=== PATIENT | female | born 1965 | race Caucasian/White ===

== ENCOUNTER 2017-04-01 17:57 | Emergency (ER) | payer OTHER ==
[2017-04-01 18:42] VITALS: BP 122/69; PULSE 67; TEMP 98.3; BMI 33.0
[2017-04-01] MEDS ORDERED: CYCLOBENZAPRINE HCL 10 MG TABLET (FP) PO ONE (19:46)
[2017-04-01] MEDS ORDERED: KETOROLAC TROMETHAMINE 60 MG/2 ML VIAL IM ONE (19:46)
[2017-04-01] MEDS ORDERED: KETOROLAC TROMETHAMINE 60 MG/2 ML VIAL ONE (19:50)
[2017-04-01] MEDS ORDERED: CYCLOBENZAPRINE HCL 10 MG TABLET (FP) ONE (19:50)
--- NOTE | 2017-04-01 19:51 | PDOC ---
History of Present Illness - General Chief Complaint: Back Pain Stated Complaint: BACK PAIN Time Seen by Provider: 04/01/17 19:45 History Source: Patient Exam Limitations: No Limitations - History of Present Illness Initial Comments: 04/01/17 19:49 Patient here with complaints of low back pain with radiating pain through right buttock and down posterior aspect of leg. Has MRI that reveals bulging disks at L2-3 and for that was taken last fall. Has a private physician that is managing her intermittent back spasm. However patient states 2 days ago had onset and worsening pain. Denies numbness or tingling to foot, denies fevers, denies any urinary or bowel problems. Ibuprofen without issue although has an aspirin ALLERGY has never had a problem with NSAIDs. Ibuprofen generally enough to resolve her pain but this is progressively worsening. Feels may have a spasm Occurred: reports: last week Severity: reports: mild, moderate Pain Location: reports: back Loss of Consciousness: no loss of consciousness Associated Symptoms (Fall): denies symptoms Past History - Travel Traveled outside of the country in the last 30 days: No Close contact w/someone who was outside of country & ill: No - Past Medical History Allergies/Adverse Reactions: Allergies Allergy/AdvReac Type Severity Reaction Status Date / Time aspirin AdvReac Verified 04/01/17 18:39 Home Medications: Ambulatory Orders Bisacodyl [Biscolax] 10 mg RC HS PRN #5 supp.rect 11/17/15 Docusate Sodium [Colace -] 100 mg PO BID #14 capsule 11/17/15 Sulfamethoxazole/Trimethoprim [Bactrim Ds -] 1 tab PO BID #14 tablet 11/17/15 Cyclobenzaprine HCl [Flexeril 10 mg] 10 mg PO BID PRN #14 tablet 04/01/17 Other medical history: DENIES - Immunization History Immunization Up to Date: Yes - Psycho/Social/Smoking Cessation Hx Anxiety: No Suicidal Ideation: No Smoking History: Never smoked Have you smoked in the past 12 months: No Information on smoking cessation initiated: No Hx Alcohol Use: No Drug/Substance Use Hx: No Substance Use Type: None Review of Systems - Review of Systems Able to Perform ROS?: Yes Is the patient limited Kyrgyz proficient: Yes Constitutional: Yes: Symptoms Reported, See HPI. No: Malaise HEENTM: Yes: See HPI. No: Symptoms Reported Respiratory: No: Symptoms reported ABD/GI: No: Symptoms Reported : No: Symptoms Reported Musculoskeletal: Yes: Symptoms Reported, See HPI, Back Pain, Muscle Weakness Integumentary: No: Symptoms Reported All Other Systems: Reviewed and Negative *Physical Exam - Vital Signs Last Vital Signs Temp Pulse Resp BP Pulse Ox 98.3 F 67 17 122/69 99 04/01/17 18:39 04/01/17 18:39 04/01/17 18:39 04/01/17 18:39 04/01/17 18:39 - Physical Exam General Appearance: Yes: Nourished, Appropriately Dressed, Apparent Distress, Mild Distress HEENT: positive: WALKER, Normal ENT Inspection, TMs Normal, Pharynx Normal Neck: positive: Supple. negative: Tender Respiratory/Chest: positive: Lungs Clear Musculoskeletal: positive: Normal Inspection, Muscle Spasm (palpable spasm noted to the paravertebral spinous muscles, on the left side at waist and lumbar spine. Has no point tenderness to cervical or thoracic or lumbar spine process. Range of motion is mildly limited secondary to pain in the low left back. NeuroVascular intact to feet) Extremity: positive: Normal Capillary Refill, Normal Inspection, Normal Range of Motion Integumentary: positive: Normal Color, Dry, Pale Neurologic: positive: language pathologist II-XII NML intact, Fully Oriented, Alert, Normal Mood/ Affect, Normal Response, Motor Strength 5/5 Progress Note - Progress Note Progress Note: Low back strain/back spasm. We'll treat for spasm currently and have follow up with chronic pain doctor. NSAIDs and cyclobenzaprine. Given Toradol here IM with no reaction after 30 minutes. *DC/Admit/Observation/Transfer Diagnosis at time of Disposition: Spasm of back muscles - Discharge Dispostion Disposition: HOME Condition at time of disposition: Stable Admit: No - Patient Instructions Printed Discharge Instructions: DI for Back Strain or Sprain Additional Instructions: Rest, no heavy lifting or exercise until pain is resolved Hot soaks to neck and low back as often as possible/hot showers or Jacuzzis No massage or therapy until spasm is gone Continue ibuprofen 2-200 mg tablets every 6 hours for the next 3 days then as needed for pain and swelling Cyclobenzaprine 1-10mg every 8 hours as needed for spasm If not significant improvement within 24 hours with medication and rest regime, followup with private physician for change in medications and /or therapy. - Post Discharge Activity Work/School Note: Back to Work
== END 2017-04-01 20:05 | disposition home or self-care (01) ==
LOC: JERFT 17:57
PROC: 3E0233Z Introduction of Anti-inflammatory into Muscle, Percutaneous Approach (ICD-10-PCS; principal; 2017-04-01)
DX: S39.012A Strain of muscle, fascia and tendon of lower back, initial encounter (principal); M62.830 Muscle spasm of back; X58.XXXA Exposure to other specified factors, initial encounter; Y93.9 Activity, unspecified; Y92.9 Unspecified place or not applicable; Y99.9 Unspecified external cause status
CPT/HCPCS: 96372; 99281-25

== ENCOUNTER 2017-11-25 05:13 | Inpatient (IN) | payer OTHER ==
[2017-11-22 13:37] VITALS: BMI 35.5
[2017-11-25] MEDS ORDERED: CEFAZOLIN 2 GM in DEXTROSE 5%-WATER - 100 ML IVPB ONE (07:41)
--- NOTE | 2017-11-25 07:41 | HP ---
History & Physical Update - History History: No Change - Physical Physical: No Change - Assessment Assessment: No Change - Plan Plan: No Change (full H&P in chart from 11/22/17, Dr. Rangel)
[2017-11-25] MEDS ORDERED: LIDOCAINE HCL/PF 2% SDV 5ML VIAL ONE (07:42)
[2017-11-25] MEDS ORDERED: MIDAZOLAM HCL 2 MG/2 ML SINGLE DOSE VIAL ONE (07:43)
[2017-11-25] MEDS ORDERED: fentaNYL CITRATE 250 MCG/5 ML VIAL ONE (07:43)
[2017-11-25] MEDS ORDERED: ROCURONIUM BROMIDE 50 MG/5 ML VIAL ONE ×2 (07:43→09:26)
[2017-11-25] MEDS ORDERED: PROPOFOL 20 ML ONE ×2 (07:43)
[2017-11-25] MEDS ORDERED: ceFAZolin SODIUM 1 GM VIAL ONE (08:05)
[2017-11-25] MEDS ORDERED: HEPARIN NA (PORCINE) 5,000 UNITS/ML 1ML VIAL ONE (08:11)
[2017-11-25] MEDS ORDERED: ONDANSETRON 4 MG/2 ML VIAL IVPUSH PRN ×2 (08:16→11:22)
[2017-11-25] MEDS ORDERED: ACETAMINOPHEN 1000 MG/100 ML VIAL (NON FORMULARY) IVPB PRN (08:17)
[2017-11-25] MEDS ORDERED: ceFAZolin SODIUM 1 GM VIAL IVPB ONE (08:27)
[2017-11-25] MEDS ORDERED: LACTATED RINGERS SOLUTION 1,000 ML IV SCH (08:30)
[2017-11-25] MEDS ORDERED: DEXAMETHASONE SOD PHOSPHATE 4 MG/1 ML VIAL ONE (08:49)
[2017-11-25] MEDS ORDERED: GLYCOPYRROLATE 0.2 MG/1 ML VIAL ONE ×2 (09:16→10:34)
[2017-11-25] MEDS ORDERED: BUPIVACAINE HCL/PF 0.5% (5MG/ML) 10 ML VIAL ONE (09:34)
[2017-11-25] MEDS ORDERED: SEVOFLURANE 250 ML BTL ONE (10:02)
[2017-11-25] MEDS ORDERED: NEOSTIGMINE METHYLSULFATE 0.5 MG/ML - 10 ML MDV ONE (10:34)
[2017-11-25] MEDS ORDERED: BUPIVACAINE HCL/PF 0.5% (5MG/ML) 10 ML VIAL IJ ONE (10:39)
[2017-11-25] MEDS ORDERED: HYDROmorphone *PCA* 6MG/30ML DISP.SYRIN PCA SCH (11:00)
[2017-11-25] MEDS ORDERED: ACETAMINOPHEN 1000 MG/100 ML VIAL (NON FORMULARY) IVPB ONE (11:10)
[2017-11-25] MEDS ORDERED: ACETAMINOPHEN INJECTION 100 ML IVPB ONE (11:18)
[2017-11-25] MEDS ORDERED: HYDROmorphone *PCA* 6MG/30ML DISP.SYRIN PCA ONE ×2 (11:30→11:46)
[2017-11-25] MEDS ORDERED: LACTATED RINGERS SOLUTION 1,000 ML/1,000 ML INFUS.BAG IV SCH (11:30)
--- NOTE | 2017-11-25 11:30 | OP ---
Operative Note - Note: Operative Date: 11/25/17 Pre-Operative Diagnosis: dysfunctional uterine bleeding Operation: robotic assisted hysterectomy, lysis of adhesions, bilateral salpingectomy Surgeon: Edelmira Rangel Electrical & Instrumentation Supervisor: Nayeli Lopez Anesthesiologist/EDUCATION SPECIALIST: Anca Jean-Baptiste Anesthesia: General Specimens Removed: uterus, bilateral salpingx Estimated Blood Loss (mls): 50 Drains, Volume Out (mls): 400 Fluid Volume Replaced (mls): 1,800 Operative Report Dictated: Yes
--- NOTE | 2017-11-25 11:32 | SURG ---
Surgery Oil Rigger Note Oil Rigger: Nayeli Lopez PA-C Date of Service: 11/25/17 Diagnosis: dysfunctional uterine bleeding Procedure: robotic assisted hysterectomy, lysis of adhesions, bilateral salpingectomy I was present for the entirety of the operative procedure. For further detail, please refer to operative report. Visit type - Case Type Case Type: Scheduled Admission - Emergency Emergency Visit: No - New patient This patient is new to me today: Yes Date on this admission: 11/25/17
[2017-11-25 12:03] LABS: BASO % 0.3 % (0-2.0); EOS % 0.4 % (0-4.5); HEMATOCRIT 35.4 % (32.4-45.2); HEMOGLOBIN 11.5 GM/dL (10.7-15.3); LYMPH % 11.4 % (8-40); MCH 27.9 pg (25.7-33.7); MCHC 32.4 g/dl (32.0-36.0); MONO % 1.3 % (3.8-10.2); NEUT % 86.6 % (42.8-82.8); PLATELET COUNT 244 K/MM3 (134-434); RBC 4.11 M/mm3 (3.60-5.2); RDW 14.7 % (11.6-15.6); WHITE BLOOD COUNT 11.3 K/mm3 (4.0-10.0)
[2017-11-25 12:39] LABS: ANION GAP 10 (8-16); BLOOD UREA NITROGEN 10 mg/dL (7-18); CALCIUM 8.8 mg/dL (8.5-10.1); CHLORIDE 106 mmol/L (98-107); CO2 26 mmol/L (21-32); GLUCOSE,RANDOM 102 mg/dL (74-106); POTASSIUM 4.2 mmol/L (3.5-5.1); SODIUM 142 mmol/L (136-145)
[2017-11-25 12:41] LABS: CREATININE 0.7 mg/dL (0.55-1.02)
[2017-11-25] MEDS: CEFAZOLIN 1 GM/D5W 1 GM/50 ML BAG IVPB SCH (16:31)
--- NOTE | 2017-11-25 19:50 | OP ---
DATE OF OPERATION: 11/25/2017 PREOPERATIVE DIAGNOSES: Leiomyomatous uterus, submucosal myoma, intramural myoma, and menorrhagia. OPERATION: Robotic, laparoscopic total hysterectomy and bilateral salpingectomy. Enterolysis POSTOPERATIVE DIAGNOSES: Leiomyomatous uterus, submucosal myoma, intramural myoma, and menorrhagia. SURGEON: Edelmira Rangel MD MARBLE RUBBER: FADI Conde ANESTHESIA: General. ANESTHESIOLOGIST: Anca Jean-Baptiste MD PROCEDURE: Patient was taken to the operating room and placed in dorsal lithotomy position, prepped and draped in the usual sterile fashion. A timeout was performed in accordance with hospital regulation. A speculum was placed in the vagina. Anterior lip of the cervix was grasped with a single-tooth tenaculum. Cervix was then dilated to accommodate the VCare uterine manipulator. Godwin catheter was inserted into the bladder. After VCare had been securely placed and Godwin placed, attention was then drawn to the umbilicus where an 8-mm umbilical incision was made. Veress needle was inserted into the cavity. Approximately 3-4 L of CO2 was insufflated in the cavity. Veress needle was then removed, and an 8-mm trocar was inserted. Laparoscope and camera were attached. Visualization revealed some adhesions. The trocar was placed on the left side 8-10 mm away from the umbilicus, and trocar was inserted under direct visualization. The AirSeal cannula was inserted in the upper abdomen 2 fingerbreadths below the rib and placed under direct visualization. Other trocars were placed on the right, 2 trocars parallel to the umbilicus 8-10 mm apart, and they were placed under direct visualization. The da Nithya robot was then side docked to the patient's bedside, and the trocars were then inserted. The laparoscope was attached. Visualization revealed numerous adhesions. Adhesions were removed using blunt dissection. The vessel sealer was then attached, and trocar and scissors were placed on the right. Vessel sealer was placed on the left, all under direct visualization and placed in position. Attention was then drawn to the console where control of the da Nithya robot was then done. Tenaculum was then used to elevate the uterus into the right side, and the utero-ovarian ligament on the left side was coagulated and cut. Round ligament was identified and clamped and cut. Fallopian tubes were then removed with vessel sealer. On the left, uterine artery was identified and clamped and cut. Vesicouterine reflection was then entered, and bladder was bluntly dissected out of the operative field. The Endo Brent were then used to cut on the uterine manipulator and enter the vagina, and the same procedure was then repeated on the right side. The utero-ovarian ligament was identified and clamped and cut. Tubes were bilaterally removed using vessel sealer. The round ligament was identified and clamped and cut. Uterine artery was identified and clamped and cut. Vesicouterine section was further placed out of the operative field. The bladder was placed out of the operative field. The Endo Brent were then used to cut the vagina away from the cervix. Coagulation of the cuff was done for hemostasis. After the cervix had been removed from the vagina, the ureter was identified and found to have peristalsis. Uterus and tubes were removed through the vagina. The cul-de-sac was then swabbed, and the tubal V-Loc suture was placed into the abdomen. The da Nithya robot grasped the V-Loc suture, and continuous stitch of the cuff was done. Hemostasis was achieved. All pedicles were noted to be hemostatic. The needle was then removed from the abdomen. All pedicles were identified and found to be hemostatic. The da Nithya robot was then undocked from the patient's bedside. Trocars were then removed after CO2 was removed from the abdomen. Incisions were then closed using 4-0 Biosyn suture in subcuticular fashion. Marcaine was then infiltrated into the incision. Ureters had been identified and found to be having peristalsis bilaterally prior to closure, and patient had tolerated the procedure well. Estimated blood loss was 50 mL. Anna [id number] MOR
[2017-11-26] MEDS: CEFAZOLIN 1 GM/D5W 1 GM/50 ML BAG IVPB SCH (01:18)
--- NOTE | 2017-11-26 08:23 | PN ---
Progress Note (short form) - Note Progress Note: Anesthesia POD#1 S/P Laproscopic,Robotic,Total hysterectomy and Salpingectomy under GA VSS,pain is bearable with Dilaudid EXPERIMENTAL MECHANIC ELECTRICAL. No N/V.taking liquids. A/P No complications to anesthesia seen. Continue EXPERIMENTAL MECHANIC ELECTRICAL for today. Anca Jean-Baptiste MD.
[2017-11-26 08:43] LABS: BASO % 0.4 % (0-2.0); EOS % 0.1 % (0-4.5); HEMATOCRIT 31.2 % (32.4-45.2); HEMOGLOBIN 10.1 GM/dL (10.7-15.3); LYMPH % 18.6 % (8-40); MCH 27.7 pg (25.7-33.7); MCHC 32.4 g/dl (32.0-36.0); MEAN CELL VOLUME 85.7 fl (80-96); MEAN PLT VOLUME 9.7 fl (7.5-11.1); MONO % 5.8 % (3.8-10.2); NEUT % 75.1 % (42.8-82.8); PLATELET COUNT 212 K/MM3 (134-434); RBC 3.64 M/mm3 (3.60-5.2); RDW 14.9 % (11.6-15.6); WHITE BLOOD COUNT 8.3 K/mm3 (4.0-10.0)
--- NOTE | 2017-11-26 08:49 | PN ---
Progress Note (short form) - Note Progress Note: PT with complaints of a headache, No blurry vision, slight dizzy. She was given tyenol with some relief last night but still with slight headache now. No nausea or emesis, tolerated clears, and had flatus several times. Vital Signs Period Temp Pulse Resp BP Sys/Toribio Pulse Ox Last 24 Hr 97.8 F-98.8 F 64-89 16-20 98-111/50-72 98-100 uop: 2500ml overnight GEN: A&0x3, appears uncomfortable CV: RRR Lungs: CTA b/l Abd: soft, inc tenderness. Inc c/d/i Laboratory Tests 11/25/17 11/25/17 11:30 11:43 WBC 11.3 H D Hgb 11.5 Hct 35.4 Plt Count 244 Sodium 142 Potassium 4.2 Chloride 106 Carbon Dioxide 26 Anion Gap 10 BUN 10 Creatinine 0.7 Random Glucose 102 Calcium 8.8 A/P: 52 yo female s/p robotic hysterectomy, b/l salpingectomy, POD#1 IV tylenol this am for headache valdez removed for TOV this am discontinue IV fluids regular diet oral pain medications and discontinue the DOG GROOMER D/w Dr. Rangel and consult with Dr. Beatty for headache requested, added imitrex prn x1 if headache returns
[2017-11-26] MEDS ORDERED: oxyCODONE HCL 5 MG TABLET PO PRN (08:52)
[2017-11-26 08:55] LABS: ANION GAP 9 (8-16); BLOOD UREA NITROGEN 8 mg/dL (7-18); CALCIUM 8.2 mg/dL (8.5-10.1); CHLORIDE 107 mmol/L (98-107); CO2 26 mmol/L (21-32); GLUCOSE,RANDOM 90 mg/dL (74-106); POTASSIUM 3.8 mmol/L (3.5-5.1); SODIUM 142 mmol/L (136-145)
[2017-11-26 08:56] LABS: CREATININE 0.5 mg/dL (0.55-1.02)
[2017-11-26] MEDS ORDERED: PCA PUMP KEY 1 EACH EACH ONE ×2 (09:04→19:06)
[2017-11-26] MEDS ORDERED: ENOXAPARIN NA (PORCINE) 40 MG/0.4 ML DISP.SYRIN SQ SCH (10:00)
[2017-11-26] MEDS: oxyCODONE HCL 5 MG TABLET PO PRN (13:12)
[2017-11-26] MEDS: ACETAMINOPHEN 325 MG TABLET (FP) PO PRN (14:18)
--- NOTE | 2017-11-26 17:11 | CONSULT ---
Consult - text type - Consultation Consultation Note: NEUROLOGY CONSULTATION is greatly appreciated: This 52 yo RH woman with three children and no sig PMH is s/p Total hysterectomy and b/l salpingectomy for painful hypermenorrhagia. The patient believes her ovaries were removed.oes Pt has had 2-3 days of headache each month, usually with her menses x many years. These are left hemicranial throbbing headaches with nausea, photophobia and phonophobia. ++ FH of headaches in her mother , a son, her sister and her niece. Today Pt. awoke with a severe left hemicranial throbbing headache with nausea and photophobia. Now "getting better" after multiple doses of tylenol. HANY: Neck supple. -Kernigs. No bruits. Obese 230 Lbs. NEURO: MS/Speech: Normal CN II-XII: Normal Motor: No drift or tremor. Normal strength, bulk, tone and reflexes.Toes downgoing. Coord: No FTN dystaxia Sensory: Normal Gait: Normal IMP: Normal Neurological exam Migraine Headaches. SUGGEST: Clarify if oophorectomies or not...it may well effect her prognosis for her migraines in the future. If headaches persist, neurology follow-up. Would Rx Topiramate gradually up to 50 mg BID and an abortive agent such as Rizatriptan. Can give Sumatriptan 50 mg PO this evening if JIMENEZ returns. Thank you very much, Ruben Beatty MD
[2017-11-26] MEDS ORDERED: SUMAtriptan SUCCINATE 50 MG TABLET PO ONE (20:00)
[2017-11-27] MEDS: ACETAMINOPHEN 325 MG TABLET (FP) PO PRN (05:41)
[2017-11-27] MEDS: oxyCODONE HCL 5 MG TABLET PO PRN (05:42)
[2017-11-27 08:38] VITALS: BP 133/72; PULSE 70; TEMP 98.2
--- NOTE | 2017-11-27 08:46 | PATH ---
Surgical Pathology Report Patient Name: RUBI MAYER [facility]. Rec. #: [id number] /Age/Gender: 1965 (Age: 52) / F Account: [id number] Location: [facility] OBS/LINING SETTER Taken: 11/25/2017 Received: 11/25/2017 Reported: 11/27/2017 Physicians: Edelmira Rangel M.D. Specimen(s) Received A: LEFT FALLOPIAN TUBE B: RIGHT FALLOPIAN TUBE C: UTERUS AND CERVIX Clinical History Pelvic pain, leiomyomatous uterus Final Diagnosis A. LEFT FALLOPIAN TUBE, SALPINGECTOMY: FOCAL LUMINAL PORTION OF UNREMARKABLE FALLOPIAN TUBE, INCLUDING FIMBRIATED END B. RIGHT FALLOPIAN TUBE, SALPINGECTOMY: FULL LUMINAL PORTION OF UNREMARKABLE FALLOPIAN TUBE, INCLUDING FIMBRIATED END. BENIGN SEROUS PARATUBAL CYSTS PRESENT. C. UTERUS AND CERVIX, HYSTERECTOMY: UTERUS AND CERVIX, 138 GRAMS, WITH TWO LEIOMYOMAS, SUPERFICIAL ADENOMYOSIS, AND CERVIX WITH CHRONIC INFLAMMATION. Electronically Signed Amos Palacios M.D. Gross Description A. Received in formalin labeled "left fallopian tube," is a 1.8 cm in length fimbriated fallopian tube. The outer surface is olmos purple with 2 paratubal cysts attached to the fimbria. The paratubal cysts measure 0.4 and 0.5 cm in greatest dimension. Sectioning reveals an unremarkable fallopian tube lumen. Veneer Jointer Operator sections are submitted in 2 cassettes as follows: 1-fimbria and paratubal cysts; 2-cross sections of fallopian tube. B. Received in formalin labeled "right fallopian tube," is a 1.5 cm in length fimbriated fallopian tube. The outer surface is olmos purple and smooth with 2 paratubal cysts attached, as averaging 0.6 cm in greatest dimension. Sectioning reveals an unremarkable fallopian tube lumen. Veneer Jointer Operator sections are submitted in 2 cassettes as follows: 1-fimbria; 2-cross sections of fallopian tube and paratubal cysts. C. Received in formalin labeled "uterus and cervix," is a 138 g uterus with an attached cervix and no attached adnexa. The serosa is green-pink and smooth with a focal bulging subserosal nodule. The attached cervix measures 3.3 cm in length and averages 3.3 cm in diameter. The ectocervix is pink-green, smooth and glistening. The endocervix is unremarkable. The endometrial cavity measures 3.5 cm in length and 2.1 cm from cornu to cornu. The endometrium is red and averages 0.1 cm in thickness. The myometrium is green-pink and trabeculated, measuring up to 2.3 cm in greatest dimension. There is a 0.8 cm in greatest dimension intramural nodule identified. The cut surface of the subserosal and intramural nodules is green, rubbery and displays a whorled architecture. No areas of hemorrhage or necrosis are identified. Veneer Jointer Operator sections are submitted in 8 cassettes as follows: 1-anterior cervix; 2-posterior cervix; 4-3-tsmnycuq endomyometrium; 6-1-fuzfnyjti endomyometrium; 7-subserosal nodule; 8-intramural nodule. 11/25/2017 [facility]11/25/2017
[2017-11-27 09:04] LABS: BASO % 0.8 % (0-2.0); HEMOGLOBIN 10.1 GM/dL (10.7-15.3); LYMPH % 23.9 % (8-40); MCH 27.8 pg (25.7-33.7); MCHC 32.6 g/dl (32.0-36.0); MEAN CELL VOLUME 85.5 fl (80-96); MEAN PLT VOLUME 10.1 fl (7.5-11.1); NEUT % 68.3 % (42.8-82.8); PLATELET COUNT 219 K/MM3 (134-434); RBC 3.62 M/mm3 (3.60-5.2); RDW 14.9 % (11.6-15.6); WHITE BLOOD COUNT 6.5 K/mm3 (4.0-10.0)
== END 2017-11-27 09:00 | disposition home or self-care (01) | DRG 519 ==
LOC: JASUSAT 05:13 → EDSTATUS 08:00 → J3W 13:44 → JASUSAT 13:45 → J3W 13:45
PROVIDERS: ADMIT Obstetrics & Gynecology; ATTEND Obstetrics & Gynecology
PROC: 8E0W4CZ Robotic Assisted Procedure of Trunk Region, Percutaneous Endoscopic Approach (ICD-10-PCS; 2017-11-25)
PROC: 0UT94ZZ Resection of Uterus, Percutaneous Endoscopic Approach (ICD-10-PCS; principal; 2017-11-25 07:30)
PROC: 0UB74ZZ Excision of Bilateral Fallopian Tubes, Percutaneous Endoscopic Approach (ICD-10-PCS; 2017-11-25 07:30)
DX: D25.1 Intramural leiomyoma of uterus (principal); D25.0 Submucous leiomyoma of uterus; N80.0 Endometriosis of uterus; N92.0 Excessive and frequent menstruation with regular cycle; G43.909 Migraine, unspecified, not intractable, without status migrainosus; R10.2 Pelvic and perineal pain
CPT/HCPCS: 36415; 80048; 85025; 86850; 86900; 86901; 88302-TC; 88307-TC; 94010; 94760; J0131; J1170; J1644

== ENCOUNTER 2018-12-18 22:34 | Emergency (ER) | payer OTHER ==
[2018-12-18 22:38] VITALS: BP 149/80; PULSE 78; TEMP 98.2; BMI 35.5
--- NOTE | 2018-12-18 23:01 | PDOC ---
History of Present Illness - General Chief Complaint: Rash Stated Complaint: RASH Time Seen by Provider: 12/18/18 23:01 History Source: Patient Exam Limitations: No Limitations - History of Present Illness Initial Comments: 12/18/18 23:29 53 year old female with PMH arthritis and sciatica presented to ED for rash x1.5 days. Pt stated the rash started on her bottom and has spread downwards. She stated it is painful and itchy. She stated she used a cortisone cream on it without relief. She denied fever, chills, nausea, vomiting, abdominal pain, chest pain, shortness of breath. She stated she had a rash to her right lateral chest, was told it was a contact dermatitis, and was prescribed a cortisone cream, which resolved the rash. Pt denied recent travel, sick contacts. Allergies: ASA Past History - Past Medical History Allergies/Adverse Reactions: Allergies Allergy/AdvReac Type Severity Reaction Status Date / Time aspirin AdvReac Verified 12/18/18 22:38 Home Medications: Ambulatory Orders Cyclobenzaprine HCl [Flexeril 10 mg] 10 mg PO BID PRN #14 tablet 04/01/17 Oxycodone HCl/Acetaminophen [Percocet 5-325 mg Tablet] 1 - 2 tab PO Q6H #20 tab MDD 6 11/27/17 Anemia: No Asthma: Yes Cancer: No Cardiac Disorders: No CVA: No COPD: No CHF: No Dementia: No Diabetes: No GI Disorders: No Disorders: No HTN: No Hypercholesterolemia: No Liver Disease: No Seizures: No Thyroid Disease: No - Immunization History Immunization Up to Date: Yes - Suicide/Smoking/Psychosocial Hx Smoking History: Never smoked Have you smoked in the past 12 months: No Hx Alcohol Use: No Drug/Substance Use Hx: No Substance Use Type: None Review of Systems - Review of Systems Able to Perform ROS?: Yes Comments:: 12/18/18 23:30 General: denied fever, chills, generalized weakness. HEENT: denied sore throat, rhinorrhea, ear pain. Heart: denied chest pain, palpitations, syncope, diaphoresis. Respiratory: denied shortness of breath, cough, sputum production, hemoptysis. Abdomen: denied abdominal pain, nausea, vomiting, diarrhea, constipation, blood in stool. : denied dysuria, increased urinary frequency, hematuria, urinary incontinence , flank pain. Back: denied back pain. Musculoskeletal: denied joint pain, muscle pain, joint swelling. Neurological: denied headache, dizziness, numbness, tingling, weakness. Skin: admitted to rash. denied laceration, abrasion. *Physical Exam - Vital Signs Last Vital Signs Temp Pulse Resp BP Pulse Ox 98.2 F 78 18 149/80 99 12/18/18 22:36 12/18/18 22:36 12/18/18 22:36 12/18/18 22:36 12/18/18 22:36 - Physical Exam Comments: 12/18/18 23:30 Constitutional: Well-nourished, Well-developed, appearing stated age. HEENT: head is normocephalic, atraumatic. EOMI. PERRLA. Neck: supple. Full ROM. Heart: regular rhythm. no murmurs, rubs or gallops. Lungs: clear to auscultation bilaterally. no crackles, rhonchi or wheezing. no stridor. Abdomen: soft, nontender. normal bowel sounds. no rebound, guarding, masses. Extremities: peripheral pulses intact. no lower extremity edema. Neurological: CN 2-12 grossly intact. moves all four extremities. Psych: awake, alert, oriented x3. follows commands. answers questions appropriately. Skin: vesicular rash in the S2 distribution to the right buttock and leg. Medical Decision Making - Medical Decision Making 12/18/18 23:30 53 year old female with no PMH presented to ED for vesicular dermatomal rash to right leg. Initial Vital Signs Temp Pulse Resp BP Pulse Ox 98.2 F 78 18 149/80 99 12/18/18 22:36 12/18/18 22:36 12/18/18 22:36 12/18/18 22:36 12/18/18 22:36 Afebrile. No tachycardia. No tachypnea. Mild hypertension. No hypoxia on room. Labs ordered: none Imaging ordered: none Medications ordered: Valacyclovir 1g PO once Pt discharged with Valacyclovir prescription. *DC/Admit/Observation/Transfer Diagnosis at time of Disposition: Zoster - Discharge Dispostion Condition at time of disposition: Stable Decision to Admit order: No - Referrals Referrals: ON STAFF,NOT [Primary Care Provider] - - Patient Instructions Printed Discharge Instructions: DI for Shingles Additional Instructions: You have Shingles, which is a reactivation of the Chicken Pox virus. I have sent a prescription to your pharmacy for an anti-viral medication. You received the first dose in the Emergency Department. Take as advised on label. Follow up with your primary care doctor in 2-3 days. Bring all paperwork given to you today to your appointment. Return to the Emergency Department for fever, chills, chest pain, shortness of breath, lightheadedness like you may pass out, vomiting or any other new, worsening or concerning symptoms. - Post Discharge Activity Forms/Work/School Notes: Back to Work
[2018-12-18] MEDS ORDERED: valACYclovir HCL 1000 MG TABLET PO ONE (23:47)
[2018-12-18] MEDS ORDERED: valACYclovir HCL 500 MG TABLET (FP) ONE (23:49)
--- NOTE | 2018-12-19 00:09 | PDOC ---
Documentation entered by Cami Burleson SCRIBE, acting as scribe for Stephen Emerson MD. Stephen Emerson MD: This documentation has been prepared by the Benjy coker Adrianna, SCRIBE, under my direction and personally reviewed by me in its entirety. I confirm that the documentation accurately reflects all work, treatment, procedures, and medical decision making performed by me. Attending Attestation - Resident Resident Name: LouJustine - ED Attending Attestation I have performed the following: I have examined & evaluated the patient, The case was reviewed & discussed with the resident, I agree w/resident's findings & plan, Exceptions are as noted - HPI HPI: The patient is a 53 year old female, with a significant PMH of asthma, arthritis , sciatica, acid reflux, and constipation, who presents to the emergency department today complaining of a rash for 1.5 days. Patient notes about 3 days ago she began experiencing right sided low back pain radiating down the RLE . The dull pain progressively worsened into a burning sensation, so patient went to her PCP. She was prescribed with oral norco and cyclobenzaprine for exacerbation of sciatica. Rash appeared after she started those medications and she worried that it may be medicine related. She notes the rash is painful and pruritic. She endorses trying a cortisone cream on the affected area, which did not provide her with any relief. Patient notes she has had rash on the right lateral chest prior to this incident, which she was told was contact dermatitis and was given a cortisone cream that resolved the rash. The patient denies chest pain, shortness of breath, headache and dizziness. Denies fever, chills, nausea, vomit, diarrhea and constipation. Denies dysuria, frequency, urgency and hematuria. Denies recent travel. Allergies: Aspirin Past surgical history: None reported Social history: No reported PCP: Not on Staff 12/18/18 23:53 12/19/18 00:06 - Physicial Exam PE: 12/19/18 00:08 Well appearing, NAD, AOx3 Vesicular rash with surrounding erythema starting at the buttock and extending down the RLE in the S2 dermatome - Medical Decision Making 12/19/18 00:10 Hx and PE consistent with zoster will send antiviral rx to pharmacy of choice will follow up with pcp dc
== END 2018-12-19 00:04 | disposition home or self-care (01) ==
LOC: JER 22:34
DX: B02.9 Zoster without complications (principal)
CPT/HCPCS: 99281-25

== ENCOUNTER 2023-02-19 04:23 | Day surgery (SDC) | payer OTHER ==
[2023-02-15 17:33] VITALS: BMI 29.0
[~2023-02-19 04:23] MED LIST: BUPIVACAINE HCL/PF 0.75% 10 ML VIAL NR ONE; LIDOCAINE HCL 1% PRESERVATIVE FREE - 30ML VIAL IJ ONE
[2023-02-19] MEDS ORDERED: LIDOCAINE HCL/PF 1% SDV 5ML VIAL ONE (07:36)
[2023-02-19] MEDS ORDERED: BUPIVACAINE HCL/PF 0.75% 10 ML VIAL ONE (07:36)
[2023-02-19] MEDS ORDERED: ACETAMINOPHEN 500 MG TABLET (FP) PO PRN (08:45)
[2023-02-19 11:42] VITALS: RESP 18
[2023-02-19] MEDS ORDERED: LIDOCAINE HCL 1% PRESERVATIVE FREE - 30ML VIAL IJ ONE (12:29)
[2023-02-19] MEDS ORDERED: BUPIVACAINE HCL/PF 0.75% 10 ML VIAL NR ONE (12:29)
[2023-02-19 13:32] VITALS: TEMP 97.8
[2023-02-19 14:51] VITALS: BP 121/80; PULSE 67
== END 2023-02-19 14:00 | disposition home or self-care (01) ==
LOC: JASU-SURG 04:23
PROVIDERS: ATTEND Pain Medicine Pain Medicine
PROC: 3E0T3BZ Introduction of Anesthetic Agent into Peripheral Nerves and Plexi, Percutaneous Approach (ICD-10-PCS; principal; 2023-02-19 13:15)
DX: M47.816 Spondylosis without myelopathy or radiculopathy, lumbar region (principal)
CPT/HCPCS: 76000-TC-FY

== ENCOUNTER 2023-07-19 03:50 | Day surgery (SDC) | payer OTHER ==
[2023-07-18 09:23] VITALS: BMI 29.0
[2023-07-19 07:07] VITALS: TEMP 97.8
[2023-07-19] MEDS ORDERED: BUPIVACAINE HCL/PF 0.75% 10 ML VIAL NR ONE (09:16)
[2023-07-19] MEDS ORDERED: LIDOCAINE 1% P/F 10 MG/ML VIAL INF ONE (09:16)
[2023-07-19 10:34] VITALS: RESP 18
[2023-07-19 10:57] VITALS: BP 134/78; PULSE 68
[2023-07-19] MEDS ORDERED: ACETAMINOPHEN 500 MG TABLET (FP) PO PRN (10:58)
== END 2023-07-19 10:25 | disposition home or self-care (01) ==
LOC: JASU-SURG 03:50
PROVIDERS: ATTEND Pain Medicine Pain Medicine
PROC: 3E0T3BZ Introduction of Anesthetic Agent into Peripheral Nerves and Plexi, Percutaneous Approach (ICD-10-PCS; principal; 2023-07-19 08:45)
DX: M47.816 Spondylosis without myelopathy or radiculopathy, lumbar region (principal)
CPT/HCPCS: 76000-TC-FY

== ENCOUNTER 2023-08-16 04:19 | Day surgery (SDC) | payer OTHER ==
[2023-08-14 14:19] VITALS: BMI 29.0
[2023-08-16] MEDS ORDERED: LIDOCAINE HCL/PF 2% SDV 5ML VIAL ONE (07:31)
[2023-08-16] MEDS ORDERED: LIDOCAINE HCL/PF 1% SDV 5ML VIAL ONE (07:32)
[2023-08-16] MEDS ORDERED: BUPIVACAINE HCL/PF 0.75% 10 ML VIAL ONE (07:32)
[2023-08-16] MEDS ORDERED: DEXAMETHASONE SOD PHOSPHATE 10 MG/1 ML VIAL ONE (07:33)
[2023-08-16 09:15] VITALS: RESP 18
[2023-08-16] MEDS ORDERED: LIDOCAINE HCL/PF 2% SDV 5ML VIAL PNB ONE ×2 (10:13→10:36)
[2023-08-16] MEDS ORDERED: LIDOCAINE 1% P/F 10 MG/ML VIAL INF ONE ×2 (10:15→10:36)
[2023-08-16] MEDS ORDERED: BUPIVACAINE HCL/PF 0.75% 10 ML VIAL NR ONE ×2 (10:16→10:37)
[2023-08-16] MEDS ORDERED: DEXAMETHASONE SOD PHOSPHATE 10 MG/1 ML VIAL IM ONE ×2 (10:18→10:37)
[2023-08-16 12:58] VITALS: BP 125/78; PULSE 60; TEMP 97.7
[2023-08-16] MEDS ORDERED: ACETAMINOPHEN 500 MG TABLET (FP) PO PRN (13:59)
== END 2023-08-16 11:45 | disposition home or self-care (01) ==
LOC: JASU-SURG 04:19
PROVIDERS: ATTEND Pain Medicine Pain Medicine
PROC: 01553ZZ Destruction of Median Nerve, Percutaneous Approach (ICD-10-PCS; principal; 2023-08-16 10:45)
DX: M47.816 Spondylosis without myelopathy or radiculopathy, lumbar region (principal)
CPT/HCPCS: 76000-TC-FY; J1100

== ENCOUNTER 2023-09-13 04:13 | Day surgery (SDC) | payer OTHER ==
[2023-09-12 07:35] VITALS: BMI 29.0
[~2023-09-13 04:13] MED LIST changes: +BUPIVACAINE HCL/PF 0.5% (5MG/ML) 10 ML VIAL IJ ONE; +DEXAMETHASONE SOD PHOSPHATE 10 MG/1 ML VIAL IVPUSH ONE; +LIDOCAINE 1% P/F 10 MG/ML VIAL INF ONE; -LIDOCAINE HCL 1% PRESERVATIVE FREE - 30ML VIAL IJ ONE; +LIDOCAINE HCL/PF 2% SDV 5ML VIAL INF ONE
[2023-09-13] MEDS ORDERED: LIDOCAINE HCL/PF 1% SDV 5ML VIAL ONE (07:20)
[2023-09-13] MEDS ORDERED: BUPIVACAINE HCL/PF 0.75% 10 ML VIAL ONE (07:20)
[2023-09-13] MEDS ORDERED: DEXAMETHASONE SOD PHOSPHATE 10 MG/1 ML VIAL ONE (07:20)
[2023-09-13] MEDS ORDERED: LIDOCAINE HCL/PF 2% SDV 5ML VIAL ONE (07:20)
[2023-09-13 08:22] VITALS: RESP 18
[2023-09-13] MEDS ORDERED: ACETAMINOPHEN 500 MG TABLET (FP) PO PRN (09:37)
[2023-09-13] MEDS ORDERED: LIDOCAINE 1% P/F 10 MG/ML VIAL INF ONE (10:50)
[2023-09-13] MEDS ORDERED: LIDOCAINE HCL/PF 2% SDV 5ML VIAL INF ONE (10:51)
[2023-09-13] MEDS ORDERED: BUPIVACAINE HCL/PF 0.75% 10 ML VIAL NR ONE (11:03)
[2023-09-13 13:37] VITALS: BP 129/71; PULSE 60; TEMP 97.9
== END 2023-09-13 11:46 | disposition home or self-care (01) ==
LOC: JASU-SURG 04:13
PROVIDERS: ATTEND Pain Medicine Pain Medicine
PROC: 015B3ZZ Destruction of Lumbar Nerve, Percutaneous Approach (ICD-10-PCS; principal; 2023-09-13 09:45)
DX: M47.816 Spondylosis without myelopathy or radiculopathy, lumbar region (principal)
CPT/HCPCS: 76000-TC-FY; J1100